=== PATIENT | male | born 1995 | race Caucasian/White ===

== ENCOUNTER 2018-09-20 21:24 | Emergency (ER) | payer OTHER ==
[2018-09-20] MEDS ORDERED: ONDANSETRON 4 MG TAB.RAPDIS PO ONE (22:04)
[2018-09-20] MEDS ORDERED: ACETAMINOPHEN 650 MG SUPP.RECT PR ONE (23:34)
[2018-09-20] MEDS ORDERED: NORMAL SALINE 1000 ML 1,000 ML IV ONE ×2 (23:35)
--- NOTE | 2018-09-20 23:45 | ER Document Report ---
ED General - General TRAVEL OUTSIDE OF THE [place] IN LAST 30 DAYS: No - HPI Patient complains to provider of: Fever, headache, vomiting Onset: This morning - 0900 Onset/Duration: Sudden Associated symptoms: Body/muscle aches, Chills, Fever, Headache, Nausea, Vomiting Relieved by: Denies - General Chief Complaint: Nausea/Vomiting Stated Complaint: FLU LIKE SYMPTOMS Time Seen by Provider: 09/20/18 23:21 - HPI Notes: 23-year-old male with no past medical history presents to the ER in mild to moderate distress with generalized body aches, malaise, fever, rigors, nausea, vomiting since this morning. Per significant other patient had blood in vomitus which prompted him to seek treatment in the ER. Patient was at the urgent care earlier today and was given Tylenol approximately 1600. No rapid flu was completed. Patient says symptoms arrived suddenly this morning. ( VINCENT SHELLEY) - Related Data Allergies/Adverse Reactions: No Known Allergies Allergy (Unverified 09/20/18 21:40) Past Medical History - General Information source: Patient - Social History Smoking Status: Never Smoker Frequency of alcohol use: None Drug Abuse: None Occupation: etouches Family History: Reviewed & Not Pertinent - Medical History Medical History: Negative Review of Systems - Review of Systems Constitutional: Chills, Fever, Malaise, Weakness Respiratory: denies: Cough Gastrointestinal: Nausea, Vomiting, Poor appetite, Poor fluid intake, Blood in vomit Musculoskeletal: Back pain Physical Exam - Vital signs Interpretation: Tachycardic - General General appearance: Appears well, Alert In distress: Mild - HEENT Head: Normocephalic, Atraumatic Eyes: Normal Pupils: PERRL - Respiratory Respiratory status: No respiratory distress Chest status: Nontender Breath sounds: Normal Chest palpation: Normal - Cardiovascular Rhythm: Regular Heart sounds: Normal auscultation, S1 appreciated, S2 appreciated Murmur: No - Abdominal Inspection: Normal Distension: No distension Bowel sounds: Normal Tenderness: Nontender Organomegaly: No organomegaly - Back Back: Normal, Nontender - Extremities General upper extremity: Normal inspection, Nontender, Normal color, Normal ROM , Normal temperature General lower extremity: Normal inspection, Nontender, Normal color, Normal ROM , Normal temperature, Normal weight bearing. No: Juliana's sign - Neurological Neuro grossly intact: Yes Cognition: Normal Orientation: AAOx4 Gratz Coma Scale Eye Opening: Spontaneous Kendall Coma Scale Verbal: Oriented Kendall Coma Scale Motor: Obeys Commands Kendall Coma Scale Total: 15 Speech: Normal Motor strength normal: LUE, RUE, LLE, RLE Sensory: Normal - Psychological Associated symptoms: Normal affect, Normal mood - Skin Skin Temperature: Warm Skin Moisture: Dry Skin Color: Normal - Vital signs Vitals: Temp Pulse Resp BP Pulse Ox 103.4 F H 119 H 36 H 112/71 100 09/20/18 22:13 09/20/18 22:13 09/20/18 22:13 09/20/18 22:13 09/20/18 22:13 Course - Re-evaluation Re-evalutation: 09/20/18 23:45 Patient appears in mild to moderate distress. Tylenol 975 mg CA ordered and normal saline 1 L ordered. Rapid influenza ordered. 09/20/18 23:55 (VINCENT SHELLEY) 09/21/18 03:19 Patient initially seen by the physician patent legal assistant. I reevaluate the patient. Patient is a 23-year-old otherwise healthy male who presents because he has sudden onset of fever this morning and felt unwell and had vomiting and body aches and headache. He was seen in urgent care and diagnosed with influenza and placed on Tamiflu. He later on start vomiting again. He spiked another high fever and felt unwell and therefore came to the ER. He was given Toradol and IV fluids. We did do influenza testing here which was negative; however, we have had several patients with what appear to be classic presentations of the flu and all other testing has been negative making me wonder about the sensitivity of our flu test. I suspect that he most likely does have the flu. He did have a flu shot but was 1-2 weeks. Currently the patient says he feels much much better. He still has a little bit of muscular soreness which is to be expected. He is received IV fluids. On P his initial evaluation that he heard a slight murmur. I listen to the patient's heart for a long period time and I did currently do not hear a murmur however my auscultation is also after the patient's heart rate has been normalized and he has been rehydrated. Patient's lung campo are clear. He looks very well clinically. His full range of motion of his neck. He is in no distress. Is not altered in any way. I do not suspect bacterial meningitis based on his clinical presentation. I feel that he is safe to be discharged home. Informed him and his to have a low threshold to return to ER if he has worsening of his symptoms, recurrent high fevers not responding to Tylenol, recurrent vomiting, or if they have any further concerns whatsoever. Informed them that most young people do very good with the flu or viral illness however some still get very sick and therefore they should have a low threshold to return to the ER. They agree with plan and he will be discharged home. Dictation of this chart was performed using voice recognition software; therefore, there may be some unintended grammatical errors. (KAREEM VINES) - Vital Signs Vital signs: Temp Pulse Resp BP Pulse Ox 99.4 F 93 18 106/51 L 100 09/21/18 01:19 09/21/18 01:19 09/21/18 01:19 09/21/18 01:19 09/20/18 22:13
[2018-09-21] MEDS ORDERED: DIPHENHYDRAMINE HCL 50 MG/ML VIAL IV ONE (00:35)
[2018-09-21] MEDS ORDERED: METOCLOPRAMIDE HCL INJ/PF 10 MG/2 ML SDV IV ONE (00:35)
[2018-09-21 00:48] LABS: A TYPE INFLUENZA AG NEGATIVE (NEGATIVE); B INFLUENZA AG NEGATIVE (NEGATIVE)
[2018-09-21] MEDS ORDERED: KETOROLAC TROMETHAMINE INJ/PF 30 MG/1 ML SDV IV ONE (00:56)
[2018-09-21] MEDS ORDERED: NORMAL SALINE 1000 ML 1,000 ML IV PRN (01:39)
[2018-09-21 03:58] VITALS: BP 114/50
== END 2018-09-21 04:16 | disposition home or self-care (01) ==
LOC: ER 21:24
DX: R50.9 Fever, unspecified (principal); R51 Headache; R11.2 Nausea with vomiting, unspecified; M79.10 Myalgia, unspecified site; R00.0 Tachycardia, unspecified
CPT/HCPCS: 99283; 96361; 96374; 87804; S0119; J1885; J7030